=== PATIENT | female | born 2000 | race Hispanic/Latino ===

== ENCOUNTER 2018-10-31 22:45 | Inpatient (IN) | payer MEDICAID, OTHER ==
[~2018-10-31] VITALS: Ht 167.6 cm; Wt 85.3 kg
[~2018-10-31 22:45] MED LIST: FLUO10CA21 PO; LORA0.5T2 PO; METF-444 PO; METF-445 PO; NORE-8 PO
[2018-10-31 23:04] LABS: APPEARANCE,URINE Clear (CLEAR); BILIRUBIN,URINE Negative (NEGATIVE); COLOR,URINE Yellow (YELLOW); GLUCOSE, URINE (UA) >=1000 mg/dL (NEGATIVE); KETONES,URINE 40 mg/dL (NEGATIVE); LEUKOCYTE ESTERASE ,URINE Negative (NEGATIVE); NITRATE,URINE Negative (NEGATIVE); OCCULT BLOOD,URINE Small (NEGATIVE); PH,URINE 5.5 (5.0-8.0); PROTEIN,URINE >=1000 mg/dL (NEGATIVE)
[2018-10-31] MEDS ORDERED: ONDANSETRON HCL 4 MG/2 ML VIAL ONE (23:04)
[2018-10-31] MEDS ORDERED: SODIUM CHLORIDE 0.9% 1000ML 1,000 ML IV ONE (23:05)
[2018-10-31] MEDS ORDERED: KETOROLAC TROMETHAMINE 15MG/ML ONE (23:05)
[2018-10-31 23:09] LABS: HCG,QUAL RESULT NEGATIVE (NEGATIVE)
[2018-10-31 23:13] LABS: BACTERIA,URINE Few /HPF (None Seen)
[2018-10-31 23:19] LABS: HEMATOCRIT 39.2 % (36-48); MEAN CORPUSCULAR VOLUME 75.2 fL (80-100); PLATELET COUNT (AUTO) 255 K/uL (130-400); RED CELL DISTRIBUTION WIDTH 15.9 % (11.0-15.5)
[2018-10-31 23:20] LABS: MEAN CORPUSCULAR HEMOGLOBIN 25.2 pg (27.0-33.0)
[2018-10-31 23:21] LABS: MEAN CORPUSCULAR HGB CONC 33.4 g/dL (32.0-36.0)
[2018-10-31 23:26] LABS: POTASSIUM 3.7 mmol/L (3.5-5.1)
[2018-10-31 23:34] LABS: LDL DIRECT 56 mg/dL (0-99)
[2018-10-31] MEDS ORDERED: MORPHINE SULFATE 8 MG/ML VIAL ONE (23:37)
[2018-10-31 23:41] LABS: BAND NEUTROPHILS % (MANUAL) 3 % (0-2); BASOPHILS % (MANUAL) 1 % (0-2); LYMPHOCYTES % (MANUAL) 16 % (22-44); SEGMENTED NEUTROPHILS % 80 % (40-70)
[2018-10-31 23:42] LABS: MAN.DIFF COMMENT-IMPRESSION MANUAL DIFFERENTIAL; PLATELET MORPHOLOGY COMMENT ADEQUATE
[2018-11-01 00:01] LABS: CHOLESTEROL 766 mg/dL (<200); HDL CHOLESTEROL 628 mg/dL (35-85); TRIGLYCERIDES 7364 mg/dL (30-200)
[2018-11-01 00:45] LABS: ALBUMIN 3.6 g/dL (3.5-5.0); TOTAL PROTEIN, SERUM 7.9 g/dL (6.0-8.3)
[2018-11-01 00:46] LABS: BILIRUBIN,TOTAL 0.6 mg/dL (0.2-1.0); CREATININE 0.5 mg/dL (0.5-1.5)
[2018-11-01] MEDS ORDERED: MORPHINE SULFATE 4 MG/1ML SYG ONE (01:45)
--- NOTE | 2018-11-01 02:45 | NUR ---
INITIAL ASSESSMENT PATIENT ARRIVED IN STRETCHER FROM ED. PATIENT APPEARS IN PAIN WAS TRANSFERRED TO BED AND MADE COMFORTABLE. COMPLAINTS O PAIN AT THIS TIME WITH NAUSEA. IV FLUIDS ARE CURRENTLY RUNNING. PATIENT RECIEVED A DOSE OF MORPHINE PRIOR TO BEING BROUGHT UP TO UNIT. PATIENT IS ALERT AND ORIENTED X4. NO SIGNS OF DISTRESS. NO SIGNS OF SHORTNESS OF BREATH. PATIENTS BELONGINGS WERE SECURED. CALL LIGHT WITHIN REACH. BEDSIDE TABLE WITHIN REACH. NO QUESTIONS, CONCERNS, OR NEEDS AT THIS TIME.
[2018-11-01 03:53] VITALS: BP 126/79
[2018-11-01] MEDS: ONDANSETRON HCL 4 MG/2 ML VIAL IVP PRN ×3 (04:40→20:34)
[2018-11-01] MEDS: MORPHINE SULFATE 4 MG/1ML SYG IV PRN ×7 (04:40→23:56)
[2018-11-01] MEDS: CEFTRIAXONE SODIUM 1 GM IVP SCH (04:40)
[2018-11-01] MEDS: SODIUM CHLORIDE 0.9% 1000ML 1,000 ML IV SCH ×4 (04:48→22:52)
--- NOTE | 2018-11-01 05:15 | NUR ---
ASSESSMENT PAIN AND NAUSEA MEDICATION GIVEN, PATIENT APPEARS MORE COMFORTABLE. NO COMPLAINTS OF PAIN AT THIS TIME. NO SIGNS OF DISTRESS. NO SHORTNESS OF BREATH. CALL LIGHT IS WITHIN REACH. BEDSIDE TABLE WITHIN REACH. PATIENT REINFORCED TO CALL IF ANY NEEDS.
[2018-11-01] MEDS ORDERED: INSULIN HUMULIN R 100 UNIT/ML 3ML SQ SCH (06:00)
[2018-11-01 07:20] VITALS: BP 132/76
--- NOTE | 2018-11-01 07:25 | NUR ---
ASSESSMENT PT IS AAOX4 STATES SHE FEELS ABD PAIN DENIES NV, RESTING IN BED. BREATHING PATTERN IS EVEN AND UNLABORED. PATIENT IS NPO STATUS, AM MEDS GIVEN ALONG WITH PAIN MEDICATION ORDERED. CALL LIGHT WITHIN REACH.
[2018-11-01] MEDS ORDERED: INSU10VI3 SQ (07:30)
[2018-11-01] MEDS ORDERED: FENO40TA4 PO (07:30)
[2018-11-01] MEDS: FAMOTIDINE/PF 20 MG/2 ML VIAL IV SCH ×2 (07:31→20:34)
--- NOTE | 2018-11-01 08:30 | NUR ---
STATUS RESTING IN BED, STATES PAIN IS MORE UNDER CONTROL. CALL LIGHT WITHIN REACH.
[2018-11-01] MEDS ORDERED: PHARMACY COMMUNICATION MISC SCH (10:30)
[2018-11-01 11:15] VITALS: BP 137/77
--- NOTE | 2018-11-01 12:00 | NUR ---
DR KINSEY ROUNDED ORDERS RECEIVED
[2018-11-01] MEDS: INSULIN REGULAR, HUMAN 3ML 100 UNIT in SODIUM CHLORIDE 0.9% 99 ML IV PRN ×2 (12:09)
[2018-11-01] MEDS: METOPROLOL TARTRATE 1 MG/ML 5ML VIAL IV PRN (13:04)
--- NOTE | 2018-11-01 13:10 | NUR ---
METOPROLOL 5MG IV GIVEN FOR HR 150-160S
--- NOTE | 2018-11-01 13:13 | NUR ---
HR VIA TELE ST 110S. DENIES PAIN. DENIES PALPITATIONS
[2018-11-01 15:30] VITALS: BP 124/73
--- NOTE | 2018-11-01 16:41 | NUR ---
carlitos note met with patient and states resides in [facility] and is currently just visiting friend/family X 4 days. states independent and active with ambulation and does own adls. [place] plan is for [place] [facility] [facility] [place]. states a special program [facility] [place] in [place] and sees and gets meds. no other health insurance. has spoken to [employer] for possible assistance. provided with rx coupon cards. pt states she will followup in Spring after dc. Addendum: 11/01/18 at 1645 by ALBA VIEIRA CM Amended: Links added.
[2018-11-01 19:00] VITALS: BP 113/72
--- NOTE | 2018-11-01 19:25 | NUR ---
INITIAL ASSESSMENT PATIENT IS RESTING ASLEEP IN BED BUT IS AROUSABLE WHEN CALLED. PATIENT IS MOANING WITH MINOR PAIN. PATIENT IS CURRENTLY RUNNING AN INSULIN DRIP. IV IS PATENT AND INTACT. NO SIGNS OF DISTRESS. NO SHORTNESS OF BREATH. CALL LIGHT IS WITHIN REACH. BEDSIDE TABLE AND PERSONAL BELONGING ARE WITHIN REACH. PATIENT MADE AWARE WILL SEE WHAT TIME PAIN MED IS DUE AND BRING IT SOON IS IT IS AVAILABLE. NO QUESTIONS, CONCERNS, AND NEEDS AT THIS TIME.
[2018-11-01] MEDS: FENOFIBRATE NANOCRYSTALLIZED 145 MG TAB PO SCH (20:33)
[2018-11-01] MEDS ORDERED: SODIUM CHLORIDE 0.9% 500ML 500 ML in SODIUM CHLORIDE 0.9% 500ML 500 ML IV SCH (22:15)
--- NOTE | 2018-11-01 22:15 | NUR ---
TACHYCARDIA PATIENT HR SUSTAINING 140-160. PATIENT CONTINUES IN PAIN REGARDLESS OF TREATING WITH PRN MEDICATIONS. MIXING TECHNICIAN CATTLE DEHORNER MADE AWARE. ORDERS FOR EKG DONE SHOWED SINUS TACHYCARDIA. AN ORDER FOR NS 500 BOLUS ORDERED AND GIVEN WILL CONTINUE TO MONITOR PATIENT.
[2018-11-01 23:00] VITALS: BP 126/72
--- NOTE | 2018-11-02 | NUR ---
ASSESSMENT PATIENT IS RESTING IN BED. CONTINUES WITH PAIN. NO SIGNS OF DISTRESS. NO SHORTNESS OF BREATH. PATIENTS CALL LIGHT WITHIN REACH. BEDSIDE TABLE WITHIN REACH. NO QUESTIONS, CONCERNS, OR NEEDS AT THIS TIME.
[2018-11-02 03:00] VITALS: BP 127/73
[2018-11-02] MEDS: MORPHINE SULFATE 4 MG/1ML SYG IV PRN ×8 (03:05→20:56)
[2018-11-02] MEDS: SODIUM CHLORIDE 0.9% 1000ML 1,000 ML IV SCH ×4 (03:05→23:38)
[2018-11-02] MEDS: CEFTRIAXONE SODIUM 1 GM IVP SCH (03:05)
[2018-11-02 03:57] LABS: BASOPHILS % (AUTO) 0.2 % (0.0-5.0); EOSINOPHILS % (AUTO) 0.1 % (0.0-8.0); HEMATOCRIT 43.5 % (36-48); LYMPHOCYTES % (AUTO) 10.9 % (21.0-51.0); MEAN CORPUSCULAR HEMOGLOBIN 25.7 pg (27.0-33.0); MEAN CORPUSCULAR HGB CONC 33.6 g/dL (32.0-36.0); MEAN CORPUSCULAR VOLUME 76.6 fL (80-100); MONOCYTES % (AUTO) 5.4 % (3.0-13.0); NEUTROPHILS % (AUTO) 83.4 % (40.0-77.0); PLATELET COUNT (AUTO) 186 K/uL (130-400); RED BLOOD CELL COUNT(AUTO) 5.68 MIL/uL (4.00-5.50); RED CELL DISTRIBUTION WIDTH 16.1 % (11.0-15.5); WHITE BLOOD COUNT (AUTO) 17.8 K/uL (4.8-10.8)
[2018-11-02 04:10] LABS: HEMOGLOBIN A1C 9.4 % (4.0-6.0)
[2018-11-02 04:28] LABS: ALBUMIN 1.9 g/dL (3.5-5.0); BILIRUBIN,TOTAL 1.1 mg/dL (0.2-1.0); CREATININE 0.7 mg/dL (0.5-1.5); POTASSIUM 3.9 mmol/L (3.5-5.1); TOTAL PROTEIN, SERUM 6.2 g/dL (6.0-8.3)
[2018-11-02] MEDS ORDERED: MORPHINE SULFATE 2 MG/ML 1ML SYG IVP ONE (04:45)
--- NOTE | 2018-11-02 04:45 | NUR ---
ASSESSMENT PATIENT IS RESTING IN BED. CONTINUES WITH PAIN. HR SUSTAINING 140-160. SCHOOL HEALTH AIDE RIPSAW OPERATOR MADE AWARE. ADDITIONAL ORDER OF MORPHINE 2MG IV X1 ORDERED AND GIVEN. NO SIGNS OF DISTRESS. NO COMPLAINTS OF SHORTNESS OF BREATH. INSULIN DRIP CONTINUES INFUSING. CALL LIGHT WITHIN REACH. NO QUESTIONS, CONCERNS, OR NEEDS AT THIS TIME.
[2018-11-02 04:47] LABS: CRP QUANTITATIVE 409.9 mg/L (0.00-9.0)
[2018-11-02] MEDS: ONDANSETRON HCL 4 MG/2 ML VIAL IVP PRN ×2 (06:13→17:27)
[2018-11-02 07:20] VITALS: BP 130/70
[2018-11-02] MEDS: METOPROLOL TARTRATE 1 MG/ML 5ML VIAL IV PRN ×2 (07:56→20:06)
[2018-11-02] MEDS: FAMOTIDINE/PF 20 MG/2 ML VIAL IV SCH ×2 (07:56→20:06)
[2018-11-02] MEDS ORDERED: FENOFIBRATE NANOCRYSTALLIZED 145 MG TAB PO SCH (09:00)
[2018-11-02 12:27] VITALS: BP 120/63
[2018-11-02 15:30] VITALS: BP 120/56
[2018-11-02] MEDS: INSULIN REGULAR, HUMAN 3ML 100 UNIT in SODIUM CHLORIDE 0.9% 99 ML IV PRN ×2 (19:25)
[2018-11-02 19:30] VITALS: BP 131/65
--- NOTE | 2018-11-02 20:05 | NUR ---
MEDS SHIFT ASSESSMENT DONE, PLEASE REFER TO CHART. DUE MEDS ADMINISTERED, TOLERATED WELL. METOPROLOL IV ADMINISTERED FOR ELEVATED VG=710 BPM. KEPT NPO EXCEPT ICE CHIPS AND PO MEDS. KEPT COMFORTABLE IN BED. CALL LIGHT WITHIN REACH. WILL RE-ASSESS PT. Addendum: 11/03/18 at 0139 by FEI CLARKE RN RN Amended: Links added.
[2018-11-02] MEDS: FENOFIBRATE NANOCRYSTALLIZED 145 MG TAB PO SCH (20:06)
--- NOTE | 2018-11-02 20:56 | NUR ---
PAIN PT CALLS FOR PAIN MEDICATION. CLAIMS OF PAINS TO BACK AND ABDOMEN. MORPHINE IV ADMINISTERED. KEPT COMFORTABLE IN BED. CALL LIGHT WITHIN REACH. WILL RE-ASSESS PT.
[2018-11-02 23:21] VITALS: BP 129/72
--- NOTE | 2018-11-02 23:30 | NUR ---
ICE PT KEEPS ASKING FOR ICE CHIPS, EXPLAINED THAT SHE COULD NOT BE GIVEN A LOT SINCE SHE IS STILL HAVING ABDOMINAL PAINS. PT VERBALIZES UNDERSTANDING. PROVIDED ICE JUST ENOUGH TO HELP RELIEVE DRYNESS OF MOUTH.
[2018-11-03] MEDS: MORPHINE SULFATE 4 MG/1ML SYG IV PRN ×4 (00:16→11:32)
--- NOTE | 2018-11-03 00:16 | NUR ---
PAIN PT CALLS FOR PAIN MEDICATION, CLAIMS OF PAINS TO HER ABDOMEN. MEDICATED WITH MORPHINE IV. KEPT RESTED AND COMFORTABLE. CALL LIGHT WITHIN REACH. WILL MONITOR PT.
--- NOTE | 2018-11-03 00:30 | NUR ---
DRIP CONTINUED TO TITRATE INSULIN DRIP WITH THE USE OF ALGORITHM #1 BUT CHECKING BLOOD SUGAR Q2H ENDORSED BY AM NURSE. WILL VERIFY ORDER.
[2018-11-03] MEDS: METOPROLOL TARTRATE 1 MG/ML 5ML VIAL IV PRN (01:58)
--- NOTE | 2018-11-03 02:00 | NUR ---
HR PT'S HR IS SUSTAINING SR ON THE 140'S. METOPROLOL IV ADMINISTERED. WILL MONITOR CLOSELY.
--- NOTE | 2018-11-03 02:05 | NUR ---
PAGED PT'S HR STILL SUSTAINING ST 130-140 BPM. PT IS RESTING AND NO COMPLAINTS VERBALIZED AT THIS TIME. PAGEMarly GLASGOW NP SUPERVISOR PRODUCT INSPECTION FOR HOSPITALIST, VIA ANSWERING SERVICE, AWAITING CALL BACK.
[2018-11-03] MEDS: CEFTRIAXONE SODIUM 1 GM IVP SCH (03:20)
[2018-11-03 03:34] VITALS: BP 122/72
--- NOTE | 2018-11-03 03:41 | NUR ---
RE-PAGED PT CALLS AND ASKS FOR PAIN MEDICATION. ASK PT IF SHE WANTS TO GO URINATE BEFORE GIVING MORPHINE BUT REFUSED, OFFERED BEDPAN AND BSC BUT PT STILL REFUSED. CLAIMS SHE DOES NOT NEED TO URINATE. PT HAD NOT URINATED YET THIS SHIFT. DUE ANTIBIOTIC ADMINISTERED AND MORPHINE GIVEN FOR PAIN. KEPT COMFORTABLE IN BED. PCP CHECKED BLOOD XIIMY=950, KEPT ON I.5 UNITS OF INSULIN/HR PER PROTOCOL. NO CALL BACK FROM TACK DRILLER, RE-PAGED VIA ANSWERING SERVICE. AWAITING CALL BACK.
--- NOTE | 2018-11-03 04:00 | NUR ---
DONALD GLASGOW NP STERILE PROCESSING TECHNICIAN FOR HOSPITALIST, CALLED AND REFERRED PT'S INSULIN DRIP DOSING PER DR KINSEY. INFORMED RN TRAVELING ALSO OF CONSISTENT TACHYCARDIA AND FREQUENT CALLING OF PAIN MEDS. NO NEW ORDERS GIVEN.
[2018-11-03 04:38] LABS: CREATININE 0.6 mg/dL (0.5-1.5); POTASSIUM 3.4 mmol/L (3.5-5.1)
[2018-11-03] MEDS: SODIUM CHLORIDE 0.9% 1000ML 1,000 ML IV SCH (05:11)
[2018-11-03 08:00] VITALS: BP 128/63
[2018-11-03] MEDS: FAMOTIDINE/PF 20 MG/2 ML VIAL IV SCH ×2 (08:19→21:20)
[2018-11-03] MEDS ORDERED: GLUCAGON 1MG KIT 1 MG ML IM PRN (09:15)
[2018-11-03] MEDS ORDERED: DEXTROSE 50%-WATER 50 ML DISP.SYRIN IV PRN (09:15)
[2018-11-03 09:42] LABS: ALBUMIN 1.8 g/dL (3.5-5.0); BILIRUBIN,DIRECT 0.1 mg/dL (0.0-0.3); BILIRUBIN,TOTAL 0.7 mg/dL (0.2-1.0)
[2018-11-03] MEDS ORDERED: IOHEXOL-350 75 ML VIAL IV ONE (10:04)
[2018-11-03] MEDS ORDERED: ZOSYN 3.375GM+NS 50ML 50 ML IV SCH (10:30)
[2018-11-03] MEDS: LACTATED RINGERS 1000ML 1,000 ML IV SCH ×4 (11:13→22:50)
[2018-11-03] MEDS: INSULIN HUMULIN R 100 UNIT/ML 3ML SQ SCH ×3 (12:09→21:00)
[2018-11-03 12:24] VITALS: BP 114/63
[2018-11-03] MEDS ORDERED: HYDROXYZINE HCL 50 MG/ML VIAL IM PRN (13:00)
[2018-11-03] MEDS ORDERED: VANCOMYCIN 1GM+NS 250ML 250 ML IV SCH (13:00)
[2018-11-03] MEDS ORDERED: VANCOMYCIN PROTOCOL PER PHARMACY IV SCH (13:00)
[2018-11-03] MEDS ORDERED: COMPOUND IV REFRIGERATED 1 EACH IVSOLN MISC PRN (13:15)
[2018-11-03] MEDS: METRONIDAZOLE 500MG/100ML BAG 100 ML IV SCH ×2 (13:32→22:02)
[2018-11-03] MEDS: ACETAMINOPHEN 650 MG SUPPOSITORY RC PRN ×2 (13:32→22:12)
[2018-11-03] MEDS: ZOSYN 3.375GM+NS 50ML 50 ML IV SCH ×2 (13:39→21:21)
[2018-11-03] MEDS: VANCOMYCIN 1.5 GM in SODIUM CHLORIDE 0.9% 250 ML IV SCH ×2 (14:43→22:11)
[2018-11-03] MEDS: HYDROMORPHONE HCL 0.5 MG/0.5 ML ML IVP PRN ×3 (14:48→22:50)
--- NOTE | 2018-11-03 15:31 | NUR ---
Diet Education RD provided Pancreatitis/Low Fat Nutrition Education. ARTURO reviewed reference materials and handouts with Pt. ARTURO discussed frequently eaten foods with Pt. Pt Denies need for Diabetes Mellitus nutrition education. Pt with no questions at this time. ARTURO encouraged Pt to notify as questions or concerns arise. Addendum: 11/03/18 at [address] Amended: Links added.
[2018-11-03 15:43] VITALS: BP 114/63
[2018-11-03 20:03] VITALS: BP 142/69
[2018-11-03] MEDS: FENOFIBRATE NANOCRYSTALLIZED 145 MG TAB PO SCH (21:20)
[2018-11-03 23:47] VITALS: BP 145/75
[2018-11-04] MEDS: HYDROMORPHONE HCL 0.5 MG/0.5 ML ML IVP PRN ×5 (03:08→23:17)
[2018-11-04 04:02] VITALS: BP 141/78
[2018-11-04 04:15] LABS: ALBUMIN 1.4 g/dL (3.5-5.0); BILIRUBIN,TOTAL 0.6 mg/dL (0.2-1.0); CREATININE 0.5 mg/dL (0.5-1.5); POTASSIUM 3.2 mmol/L (3.5-5.1); TOTAL PROTEIN, SERUM 4.9 g/dL (6.0-8.3)
[2018-11-04] MEDS: ZOSYN 3.375GM+NS 50ML 50 ML IV SCH (04:49)
[2018-11-04] MEDS ORDERED: HYDROMORPHONE HCL 2 MG/ML VIAL IVP ONE (05:00)
[2018-11-04] MEDS: VANCOMYCIN 1.5 GM in SODIUM CHLORIDE 0.9% 250 ML IV SCH ×3 (05:07→22:44)
[2018-11-04] MEDS: METRONIDAZOLE 500MG/100ML BAG 100 ML IV SCH (05:08)
[2018-11-04] MEDS: LACTATED RINGERS 1000ML 1,000 ML IV SCH ×5 (06:14→19:38)
[2018-11-04] MEDS ORDERED: HYDROMORPHONE 1 MG/1 ML AMP ONE (06:19)
[2018-11-04] MEDS: INSULIN HUMULIN R 100 UNIT/ML 3ML SQ SCH ×4 (06:42→21:00)
[2018-11-04 07:43] LABS: BASOPHILS % (AUTO) 0.5 % (0.0-5.0); EOSINOPHILS % (AUTO) 1.6 % (0.0-8.0); HEMATOCRIT 28.8 % (36-48); LYMPHOCYTES % (AUTO) 10.6 % (21.0-51.0); MEAN CORPUSCULAR HEMOGLOBIN 25.5 pg (27.0-33.0); MEAN CORPUSCULAR HGB CONC 32.9 g/dL (32.0-36.0); MEAN CORPUSCULAR VOLUME 77.4 fL (80-100); MONOCYTES % (AUTO) 5.5 % (3.0-13.0); NEUTROPHILS % (AUTO) 81.8 % (40.0-77.0); PLATELET COUNT (AUTO) 131 K/uL (130-400); RED BLOOD CELL COUNT(AUTO) 3.71 MIL/uL (4.00-5.50); RED CELL DISTRIBUTION WIDTH 16.4 % (11.0-15.5); WHITE BLOOD COUNT (AUTO) 15.5 K/uL (4.8-10.8)
[2018-11-04] MEDS: FAMOTIDINE/PF 20 MG/2 ML VIAL IV SCH ×2 (08:05→19:38)
[2018-11-04 08:15] VITALS: BP 115/70
[2018-11-04 10:22] LABS: HEMATOCRIT 30.1 % (36-48); MEAN CORPUSCULAR HEMOGLOBIN 25.5 pg (27.0-33.0); MEAN CORPUSCULAR HGB CONC 32.9 g/dL (32.0-36.0); MEAN CORPUSCULAR VOLUME 77.4 fL (80-100); PLATELET COUNT (AUTO) 140 K/uL (130-400); RED CELL DISTRIBUTION WIDTH 16.1 % (11.0-15.5); WHITE BLOOD COUNT (AUTO) 17.1 K/uL (4.8-10.8)
[2018-11-04 10:28] LABS: CREATININE 0.6 mg/dL (0.5-1.5); POTASSIUM 3.2 mmol/L (3.5-5.1)
[2018-11-04] MEDS: POTASSIUM CHLORIDE 10MEQ/100ML 100 ML IV PRN ×2 (11:05→19:31)
[2018-11-04] MEDS ORDERED: ENOXAPARIN SODIUM 30 MG/0.3 ML SQ SCH (11:45)
[2018-11-04 12:19] VITALS: BP 124/67
[2018-11-04] MEDS: MEROPENEM 1 GM VIAL IVP SCH ×2 (12:22→19:38)
[2018-11-04 12:24] LABS: INR 0.96 (0.85-1.15); PROTHROMBIN TIME 10.1 SEC (9.6-11.6)
--- NOTE | 2018-11-04 15:00 | NUR ---
PROCEDURE PATIENT SCHEDULED FOR U/S GD THORACENTESIS. IMAGES TAKEN AND REVIEWED BY DR Kwasi DYSON. NOT ENOUGH FLUID SEEN FOR PROCEDURE AND EXAM CANCELLED. REPORT GIVEN TO JOANN HERNANDEZ AND PATIENT TRANSPORTED TO [facility] VIA BED.
[2018-11-04] MEDS: ACETAMINOPHEN 650 MG SUPPOSITORY RC PRN ×2 (15:49→23:16)
[2018-11-04 16:32] VITALS: BP 134/74
[2018-11-04 19:40] VITALS: BP 125/68
[2018-11-04] MEDS: FENOFIBRATE NANOCRYSTALLIZED 145 MG TAB PO SCH (19:42)
[2018-11-04 23:50] VITALS: BP 121/80
[2018-11-05] MEDS: LACTATED RINGERS 1000ML 1,000 ML IV SCH ×6 (00:10→17:07)
[2018-11-05] MEDS: HYDROMORPHONE HCL 0.5 MG/0.5 ML ML IVP PRN ×5 (03:25→21:50)
[2018-11-05] MEDS: MEROPENEM 1 GM VIAL IVP SCH ×3 (03:25→20:20)
[2018-11-05 03:44] VITALS: BP 132/67
[2018-11-05 04:53] LABS: BASOPHILS % (AUTO) 0.3 % (0.0-5.0); HEMATOCRIT 28.8 % (36-48); LYMPHOCYTES % (AUTO) 8.9 % (21.0-51.0); MEAN CORPUSCULAR HEMOGLOBIN 25.6 pg (27.0-33.0); MEAN CORPUSCULAR HGB CONC 32.7 g/dL (32.0-36.0); MEAN CORPUSCULAR VOLUME 78.1 fL (80-100); MONOCYTES % (AUTO) 8.4 % (3.0-13.0); NEUTROPHILS % (AUTO) 81.4 % (40.0-77.0); NUCLEATED RED BLOOD CELLS 0.1 % (0.0-0.19); PLATELET COUNT (AUTO) 136 K/uL (130-400); RED BLOOD CELL COUNT(AUTO) 3.69 MIL/uL (4.00-5.50); RED CELL DISTRIBUTION WIDTH 16.3 % (11.0-15.5); WHITE BLOOD COUNT (AUTO) 17.5 K/uL (4.8-10.8)
[2018-11-05 05:01] LABS: INR 0.99 (0.85-1.15); PROTHROMBIN TIME 10.4 SEC (9.6-11.6)
[2018-11-05] MEDS: VANCOMYCIN 1.5 GM in SODIUM CHLORIDE 0.9% 250 ML IV SCH ×3 (05:08→23:02)
[2018-11-05 05:09] LABS: ALBUMIN 1.7 g/dL (3.5-5.0); BILIRUBIN,TOTAL 0.6 mg/dL (0.2-1.0); CREATININE 0.7 mg/dL (0.5-1.5); POTASSIUM 3.3 mmol/L (3.5-5.1); TOTAL PROTEIN, SERUM 5.8 g/dL (6.0-8.3)
[2018-11-05] MEDS: INSULIN HUMULIN R 100 UNIT/ML 3ML SQ SCH ×3 (06:16→16:19)
[2018-11-05] MEDS: FAMOTIDINE/PF 20 MG/2 ML VIAL IV SCH ×2 (07:39→20:20)
[2018-11-05] MEDS: ENOXAPARIN SODIUM 30 MG/0.3 ML SQ SCH (07:39)
--- NOTE | 2018-11-05 07:40 | NUR ---
ASSESSMENT PT IS AAOX3 DENIES CP DENIES NV RESTING IN BED. STATES SHE FEELS SOME ABD PAIN. IV FLUIDS INFUSING ORDERED. HOB UP AT 30 DEGREES. CALL LIGHT WITHIN REACH.
[2018-11-05 08:00] VITALS: BP 137/82
--- NOTE | 2018-11-05 09:00 | NUR ---
[place] MILLAN ASSEMBLY MACHINE SET UP MECHANIC ROUNDED SAW PATIENT, ORDER RECEIVED
[2018-11-05 12:00] VITALS: BP 139/78
--- NOTE | 2018-11-05 13:00 | NUR ---
MD ROUNDS DR ARMSTRONG / DR MADERA ROUNDED, SAW PATIENT. ORDERS RECEIVED.
[2018-11-05 15:57] VITALS: BP 131/75
[2018-11-05 19:03] VITALS: BP 134/70
[2018-11-05] MEDS: FENOFIBRATE NANOCRYSTALLIZED 145 MG TAB PO SCH (20:21)
[2018-11-05] MEDS: ONDANSETRON HCL 4 MG/2 ML VIAL IVP PRN (20:42)
--- NOTE | 2018-11-05 22:00 | NUR ---
ORDERS HOSPITALIST PAGED FOR ORDERS
--- NOTE | 2018-11-05 22:30 | NUR ---
PER PEE WALLIS ADMINISTER 500 BOLUS OF NS FOR TACHYCARDIA 120-140S
[2018-11-05] MEDS: SODIUM CHLORIDE 0.9% 500ML 500 ML IV ONE (22:56)
--- NOTE | 2018-11-05 23:00 | NUR ---
DONALD WALLIS INFORMED PATIENT HR REMAINS TACHY 120-140. LABETALOL ORDERED
[2018-11-05] MEDS ORDERED: LABETALOL 20 MG/4 ML DISP.SYRIN IV PRN (23:30)
[2018-11-06 00:10] VITALS: BP 123/64
[2018-11-06] MEDS: HYDROMORPHONE HCL 0.5 MG/0.5 ML ML IVP PRN ×6 (02:45→20:00)
[2018-11-06 03:32] VITALS: BP 112/64
[2018-11-06] MEDS: INSULIN HUMULIN R 100 UNIT/ML 3ML SQ SCH ×5 (03:41→21:15)
[2018-11-06] MEDS: LACTATED RINGERS 1000ML 1,000 ML IV SCH ×4 (03:42→18:30)
[2018-11-06] MEDS: MEROPENEM 1 GM VIAL IVP SCH ×3 (03:42→19:58)
[2018-11-06] MEDS: SODIUM CHLORIDE 0.9% 500ML 500 ML IV ONE (03:43)
[2018-11-06 03:51] LABS: BASOPHILS % (AUTO) 0.1 % (0.0-5.0); EOSINOPHILS % (AUTO) 0.2 % (0.0-8.0); HEMATOCRIT 32.6 % (36-48); MEAN CORPUSCULAR HEMOGLOBIN 25.1 pg (27.0-33.0); MEAN CORPUSCULAR HGB CONC 32.2 g/dL (32.0-36.0); MEAN CORPUSCULAR VOLUME 77.8 fL (80-100); MONOCYTES % (AUTO) 7.3 % (3.0-13.0); NEUTROPHILS % (AUTO) 86.4 % (40.0-77.0); PLATELET COUNT (AUTO) 182 K/uL (130-400); RED BLOOD CELL COUNT(AUTO) 4.19 MIL/uL (4.00-5.50); WHITE BLOOD COUNT (AUTO) 24.2 K/uL (4.8-10.8)
[2018-11-06 04:01] LABS: INR 1.01 (0.85-1.15); PARTIAL THROMBOPLASTIN TIME 26.7 SEC (26.3-35.5); PROTHROMBIN TIME 10.6 SEC (9.6-11.6)
[2018-11-06 04:04] LABS: ALBUMIN 1.7 g/dL (3.5-5.0); BILIRUBIN,TOTAL 0.5 mg/dL (0.2-1.0); CREATININE 0.7 mg/dL (0.5-1.5); PHOSPHORUS 3.2 mg/dL (2.5-4.9); POTASSIUM 3.5 mmol/L (3.5-5.1); TOTAL PROTEIN, SERUM 6.2 g/dL (6.0-8.3)
--- NOTE | 2018-11-06 04:59 | NUR ---
HEART RATE DECREASED TO 100-115. PATIENT C/O OF ABDOMINAL PAIN AND NAUSEA SEVERAL TIMES. PAIN MEDS AND ANTIEMESIS MEDICATIONS ADMINISTERED APPROPRIATELY. PATIENT HAD A LOOSE BM. GOETZ IN PLACE DRAINING CLEAR YELLOW URINE.
[2018-11-06] MEDS: VANCOMYCIN 1.5 GM in SODIUM CHLORIDE 0.9% 250 ML IV SCH ×3 (06:11→21:09)
[2018-11-06] MEDS: ONDANSETRON HCL 4 MG/2 ML VIAL IVP PRN ×2 (06:11→17:55)
--- NOTE | 2018-11-06 07:40 | NUR ---
ASSESSMENT PT IS AAOX3 DENIES CP DENIES SOB, DOES COMPLAIN OF ABD PAIN. PRN DILAUDID GIVEN FOR PAIN. AM MEDS GIVEN, PATIENT REFUSED LOVENOX. CALL LIGHT WITHIN REACH.
[2018-11-06 07:55] VITALS: BP 138/86
[2018-11-06] MEDS: FAMOTIDINE/PF 20 MG/2 ML VIAL IV SCH ×2 (07:58→19:58)
[2018-11-06] MEDS: ENOXAPARIN SODIUM 30 MG/0.3 ML SQ SCH ×2 (07:58→08:00)
--- NOTE | 2018-11-06 10:44 | NUR ---
DR ANDREWS ROUNDED FAILED ATTEMPT NGT TUBE, PLAN IR TO PLACE NGT.
--- NOTE | 2018-11-06 11:10 | NUR ---
FATHER CALLED WANTS TO SPEAK TO DOCTOR. I ASKED PATIENT IF THIS WAS FINE. SHE SAID YES IT IS FINE. DR ANDREWS SPOKE WITH FATHER VIA PHONE.
[2018-11-06 11:25] VITALS: BP 137/81
--- NOTE | 2018-11-06 11:45 | NUR ---
DREA ARGUELLES PLACEMENT PATIENT SITTING UP AT BEDSIDE. PROCEDURE EXPLAINED AND PATIENT VERBALIZED UNDERSTANDING. WOLF ARGUELLES MEASURED ON LEFT SIDE AND PLACED TO LT NARE. PLACEMENT VERIFIED WITH 30CC AIR INJECTED THROUGH CATHETER. AIR AUSCULTATED IN STOMACH. PATIENT TOLERATD PROCEDURE WELL. DO ARUGELLES SECURED WITH OPSITE TO LT NARE. PATIENT TO GO TO RADIOLOGY FOR CATHETER ADVANCEMENT IN SMALL BOWEL
[2018-11-06 16:08] VITALS: BP 125/68
--- NOTE | 2018-11-06 16:56 | NUR ---
RD FOLLOW UP Tube Feeding Recommendations Per Requested: Continuous Vital High Protein Initiated at 25mls/hr, increase by 5 every 5 hours. Goal rate:60mLs/hr (1440kcal/126gm Pro/1204mLs H2O/33gm Fat). Low fat formula due to Pancreatitis. Recommended Flushes: 135mls Q12Hrs. Tube feeding recommendations placed in Pt chart. Pt pending NGT placement as per EMR. Pt LBM 11/06/18. Pt monitored labs: Na 133, CO2 11, BUN 4, Glu 179, Alb 1.7. RD to continue to monitor. Please notify RD as additional nutrition concerns arise. Thank you. Addendum: 11/06/18 at [address] Amended: Links added.
--- NOTE | 2018-11-06 17:35 | NUR ---
DR ANDREWS ROUNDED ORDERED TO HOLD FEEDING VIA BLANE FOR NOW. HE SPOKE WITH DR EDOUARD SANCHES VIA PHONE. DR SANCHES TO REVIEW CHART AND CALL BACK WITH ORDERS.
[2018-11-06 19:12] VITALS: BP 132/80
[2018-11-06] MEDS: FENOFIBRATE NANOCRYSTALLIZED 145 MG TAB PO SCH (19:58)
--- NOTE | 2018-11-06 23:22 | NUR ---
CT abdomen Per [facility] ER is busy and they do not have staff to perform CT ordered at night. Will do CT in morning.
[2018-11-07] VITALS (8 sets, daily range): BP systolic 82–135; BP diastolic 56–77
[2018-11-07] MEDS: HYDROMORPHONE HCL 0.5 MG/0.5 ML ML IVP PRN ×4 (00:26→17:18)
[2018-11-07] MEDS: MEROPENEM 1 GM VIAL IVP SCH ×3 (03:35→20:16)
[2018-11-07] MEDS: ONDANSETRON HCL 4 MG/2 ML VIAL IVP PRN (03:35)
[2018-11-07 04:34] LABS: INR 0.98 (0.85-1.15); PARTIAL THROMBOPLASTIN TIME 24.5 SEC (26.3-35.5); PROTHROMBIN TIME 10.3 SEC (9.6-11.6)
--- NOTE | 2018-11-07 04:34 | NUR ---
Patient called for pain medication every 4hours for abdominal pain 08/27. C/O nausea one time. Medicated with antiemesis medication. Patient has no motivation to move from bed. Weinberg catheter in place draining clear yellow urine. Output is good.
[2018-11-07] MEDS: VANCOMYCIN 1.5 GM in SODIUM CHLORIDE 0.9% 250 ML IV SCH ×3 (05:55→22:32)
[2018-11-07] MEDS: INSULIN HUMULIN R 100 UNIT/ML 3ML SQ SCH ×4 (06:26→21:51)
[2018-11-07] MEDS: FAMOTIDINE/PF 20 MG/2 ML VIAL IV SCH ×2 (09:20→20:16)
[2018-11-07 10:29] LABS: HEMATOCRIT 29.1 % (36-48); MEAN CORPUSCULAR HEMOGLOBIN 25.3 pg (27.0-33.0); MEAN CORPUSCULAR HGB CONC 32.4 g/dL (32.0-36.0); MEAN CORPUSCULAR VOLUME 78.2 fL (80-100); NUCLEATED RED BLOOD CELLS 0.1 % (0.0-0.19); PLATELET COUNT (AUTO) 167 K/uL (130-400); RED BLOOD CELL COUNT(AUTO) 3.72 MIL/uL (4.00-5.50); RED CELL DISTRIBUTION WIDTH 16.5 % (11.0-15.5); WHITE BLOOD COUNT (AUTO) 14.5 K/uL (4.8-10.8)
[2018-11-07 10:41] LABS: CREATININE 0.7 mg/dL (0.5-1.5)
[2018-11-07 10:53] LABS: POTASSIUM 2.9 mmol/L (3.5-5.1)
[2018-11-07] MEDS: LACTATED RINGERS 1000ML 1,000 ML IV SCH ×2 (13:12→22:32)
[2018-11-07] MEDS: ENOXAPARIN SODIUM 30 MG/0.3 ML SQ SCH (13:13)
[2018-11-07] MEDS ORDERED: IOHEXOL-350 75 ML VIAL IV ONE (14:04)
--- NOTE | 2018-11-07 16:01 | NUR ---
Nutrition f/u: Nutrition consult for TPN recommendations. Pt with PICC line placed. TF to stop. Elevated triglycerides at 554, cholesterol at 212, Lipase at 863. Recommendations: Clinimix 5 standard at 75ml/hr + Intralipids -- starting Saturday. Monitor Lipid Panel on a weekly basis. Estimated to provide 1778kcal, 90gPro, GIR 2.2mg/kg/min. RD to continue monitoring nutritional status for continued intervention. Addendum: 11/07/18 at [address] RD Amended: Links added.
[2018-11-07] MEDS ORDERED: FAT EMULSIONS 20% 250ML 250 ML IV SCH (16:08)
[2018-11-07] MEDS ORDERED: M.V.I. IV [ADULT] 10 ML in CLINIMIX E 5%-15% 2,000 ML IV SCH (16:15)
[2018-11-07] MEDS ORDERED: LIDOCAINE HCL-MPF 1% 2ML VIAL IV PRN (17:45)
[2018-11-07] MEDS: POTASSIUM CHLORIDE 20MEQ/100ML 100 ML IV PRN ×2 (18:53→20:17)
[2018-11-07] MEDS: FENOFIBRATE NANOCRYSTALLIZED 145 MG TAB PO SCH ×2 (20:00→20:37)
--- NOTE | 2018-11-07 21:00 | NUR ---
Pt. was complaining of left back pain,DONALD Mina was making rounds for another pt and was notified of pt complainedof pain but no pain medication received new order.
[2018-11-07] MEDS ORDERED: HYDROMORPHONE HCL 0.5 MG/0.5 ML ML IVP SCH (21:15)
--- NOTE | 2018-11-08 | NUR ---
Pt. resting well , respirations even and non labored.Call light placed within reach.
--- NOTE | 2018-11-08 03:29 | NUR ---
Payient c/o abdominal pain and sudden onset of right eye swelling.DONALD Mina was notified and received order.Ice pack applied.Will continue to monitor pt.
[2018-11-08] MEDS ORDERED: HYDROMORPHONE HCL 0.5 MG/0.5 ML ML IVP ONE (03:30)
[2018-11-08 04:07] LABS: BASOPHILS % (AUTO) 0.3 % (0.0-5.0); EOSINOPHILS % (AUTO) 3.3 % (0.0-8.0); HEMATOCRIT 27.6 % (36-48); LYMPHOCYTES % (AUTO) 15.9 % (21.0-51.0); MEAN CORPUSCULAR HEMOGLOBIN 25.5 pg (27.0-33.0); MEAN CORPUSCULAR HGB CONC 33.5 g/dL (32.0-36.0); MEAN CORPUSCULAR VOLUME 76.2 fL (80-100); MONOCYTES % (AUTO) 6.8 % (3.0-13.0); NEUTROPHILS % (AUTO) 73.7 % (40.0-77.0); PLATELET COUNT (AUTO) 140 K/uL (130-400); RED BLOOD CELL COUNT(AUTO) 3.62 MIL/uL (4.00-5.50); RED CELL DISTRIBUTION WIDTH 16.1 % (11.0-15.5); WHITE BLOOD COUNT (AUTO) 11.3 K/uL (4.8-10.8)
[2018-11-08] MEDS: MEROPENEM 1 GM VIAL IVP SCH ×3 (04:10→20:00)
[2018-11-08] MEDS: LACTATED RINGERS 1000ML 1,000 ML IV SCH ×4 (04:18→17:03)
[2018-11-08 04:29] LABS: ALBUMIN 1.8 g/dL (3.5-5.0); BILIRUBIN,TOTAL 0.3 mg/dL (0.2-1.0); CREATININE 0.6 mg/dL (0.5-1.5); MAGNESIUM 1.4 mg/dL (1.80-2.40); PHOSPHORUS 2.4 mg/dL (2.5-4.9); TOTAL PROTEIN, SERUM 5.9 g/dL (6.0-8.3)
[2018-11-08 04:31] LABS: POTASSIUM 2.7 mmol/L (3.5-5.1)
[2018-11-08 04:43] VITALS: BP 136/81
[2018-11-08] MEDS ORDERED: MAGNESIUM 2GM PREMIX 50ML 50 ML IV ONE (04:56)
[2018-11-08] MEDS: POTASSIUM CHLORIDE 20MEQ/100ML 100 ML IV PRN ×3 (05:04→14:30)
[2018-11-08] MEDS: VANCOMYCIN 1.5 GM in SODIUM CHLORIDE 0.9% 250 ML IV SCH ×3 (05:13→22:44)
[2018-11-08] MEDS: INSULIN HUMULIN R 100 UNIT/ML 3ML SQ SCH ×4 (06:12→21:00)
[2018-11-08 07:20] VITALS: BP 118/74
[2018-11-08] MEDS: FAMOTIDINE/PF 20 MG/2 ML VIAL IV SCH ×2 (08:53→20:00)
[2018-11-08] MEDS: ENOXAPARIN SODIUM 30 MG/0.3 ML SQ SCH (08:53)
[2018-11-08] MEDS: MAGNESIUM 2GM PREMIX 50ML 50 ML IV PRN (08:58)
[2018-11-08 11:20] VITALS: BP 133/74
--- NOTE | 2018-11-08 12:19 | NUR ---
Nutrition follow-up: Pt. on Clear Liquid diet, TPN-Clinimix 5/15@75ml/hr with 250ml 20% Intralipids. Pt. stated was able to tolerate 2 juices and Dutch ice with no N/V reported. Labs reviewed(Alb 1.8, BG 262, TG 417, Lipase 620). LBM: 11/07/18. Recommendations: 1) Continue current TPN and Intralipids. 2) When medically feasible, rec. advance diet as tolerated to 75gm CCD Low Fat GI Soft/[place]. 3) Continue to monitor pt's nutritional status. 4) Consult RD as nutrition concerns arise. Addendum: 11/08/18 at [address] Amended: Links added.
[2018-11-08 15:00] VITALS: BP 115/70
[2018-11-08] MEDS: FENOFIBRATE NANOCRYSTALLIZED 145 MG TAB PO SCH (20:00)
[2018-11-08 20:14] VITALS: BP 133/81
[2018-11-08 23:58] VITALS: BP 120/80
[2018-11-09] MEDS: LACTATED RINGERS 1000ML 1,000 ML IV SCH ×2 (02:03→05:07)
[2018-11-09 04:29] VITALS: BP 123/79
[2018-11-09 04:56] LABS: BASOPHILS % (AUTO) 0.1 % (0.0-5.0); EOSINOPHILS % (AUTO) 1.8 % (0.0-8.0); HEMATOCRIT 26.2 % (36-48); LYMPHOCYTES % (AUTO) 17.4 % (21.0-51.0); MEAN CORPUSCULAR HEMOGLOBIN 25.3 pg (27.0-33.0); MEAN CORPUSCULAR HGB CONC 33.3 g/dL (32.0-36.0); MEAN CORPUSCULAR VOLUME 75.9 fL (80-100); MONOCYTES % (AUTO) 5.6 % (3.0-13.0); NEUTROPHILS % (AUTO) 75.1 % (40.0-77.0); PLATELET COUNT (AUTO) 151 K/uL (130-400); RED BLOOD CELL COUNT(AUTO) 3.45 MIL/uL (4.00-5.50); RED CELL DISTRIBUTION WIDTH 15.7 % (11.0-15.5); WHITE BLOOD COUNT (AUTO) 12.4 K/uL (4.8-10.8)
[2018-11-09] MEDS: MEROPENEM 1 GM VIAL IVP SCH ×3 (05:02→19:44)
[2018-11-09] MEDS: VANCOMYCIN 1.5 GM in SODIUM CHLORIDE 0.9% 250 ML IV SCH ×3 (05:06→22:45)
[2018-11-09 05:12] LABS: ALBUMIN 1.8 g/dL (3.5-5.0); BILIRUBIN,TOTAL 0.3 mg/dL (0.2-1.0); CREATININE 0.3 mg/dL (0.5-1.5)
[2018-11-09 05:17] LABS: POTASSIUM 2.9 mmol/L (3.5-5.1)
[2018-11-09] MEDS: POTASSIUM CHLORIDE 20MEQ/100ML 100 ML IV PRN (05:22)
[2018-11-09] MEDS: INSULIN HUMULIN R 100 UNIT/ML 3ML SQ SCH ×4 (06:05→21:37)
[2018-11-09 07:25] VITALS: BP 124/73
[2018-11-09] MEDS: ENOXAPARIN SODIUM 30 MG/0.3 ML SQ SCH (08:29)
[2018-11-09] MEDS: FAMOTIDINE/PF 20 MG/2 ML VIAL IV SCH ×2 (08:29→20:23)
--- NOTE | 2018-11-09 08:45 | NUR ---
AM ASSESSMENT PT LAYING IN BED, RESTING. A/O X 3. NO SOB. NO DISTRESS NOTED. DENIES PALPITATIONS. TELE: STACH 110s. DENIES ABDOMINAL PAIN. DENIES N/V. (+) LOOSE STOOLS. DIET TO BE ADVANCED THIS AM. TOLERATED CLEAR LIQUIDS. 16 FR GOETZ CATH PATENT & DRAINING. LR'S INFUSING @ 150 ML/HR, ABBY PICC LINE. UP W/ASSISTANCE. INSTRUCTED TO CALL FOR ASSISTANCE. CALL KAYY W/IN REACH.
[2018-11-09] MEDS: POTASSIUM CHLORIDE 10% ELIXIR 20 MEQ/15 ML UDCUP PO PRN ×4 (09:06→16:35)
--- NOTE | 2018-11-09 10:48 | NUR ---
STATUS 16 FR GOETZ CATHETER DC'D @ THIS TIME. CATHETER TIP INTACT. NO RESISTANCE @ WITHDRAWAL. PT INFORMED TO NOTIFY STAFF OF 1st VOID AFTER CATHETER REMOVAL.
[2018-11-09 11:15] VITALS: BP 119/76
--- NOTE | 2018-11-09 12:50 | NUR ---
STATUS PT SITTING IN CHAIR, CRYING. PT WANTING TO GO HOME TODAY. STATES NOT WANTING TO WAIT UNTIL TOMORROW TO BE DISCHARGED HOME. INFORMED PT MD TO BE NOTIFIED.
--- NOTE | 2018-11-09 13:00 | NUR ---
MD VISIT DR LAI IN TO SEE PT. PT REPEATED TO MD THAT SHE WOULD LIKE TO GO HOME TODAY. INFORMED PT LA IS TO DC TOMORROW, PT NOT READY TO BE DISCHARGED HOME TODAY. PT INSISTS ON WANTING TO GO HOME TODAY. LEAVING AMA EXPLAINED BY . PT INFORMED SHE WOULD BE LEAVING AMA W/OUT PRESCRIPTIONS.
--- NOTE | 2018-11-09 13:30 | NUR ---
STATUS PT SITTING IN CHAIR, CONTRACT TECHNICAL WRITER PHONE. @ THIS TIME PT WILL CONTINUE TO STAY IN HOSPITAL AND WON'T BE LEAVING AMA.
[2018-11-09 15:00] VITALS: BP 104/73
--- NOTE | 2018-11-09 17:23 | NUR ---
MD NOTIFICATION DR LAI NOTIFIED RUE VENOUS DOPPLER (+) FOR DVT, BRACHIAL & ANTECUBITAL VEIN. ORDERS RECEIVED & ENTERED.
--- NOTE | 2018-11-09 18:00 | NUR ---
MD VISIT DR LAI IN TO SEE PT. RUE VENOUS DOPPLER RESULTS REVIEWED W/PT. PT TO BE STARTED ON ELIQUIS, PT INFORMED BY MD. QUESTIONS ENCOURAGED & CLARIFIED BY .
[2018-11-09] MEDS ORDERED: APIXABAN 5 MG TABLET PO ONE (18:08)
[2018-11-09] MEDS ORDERED: APIXABAN 5 MG TABLET PO SCH (18:15)
[2018-11-09] MEDS: FENOFIBRATE NANOCRYSTALLIZED 145 MG TAB PO SCH (19:45)
[2018-11-09 20:08] VITALS: BP 109/69
[2018-11-09] MEDS: APIXABAN 5 MG TABLET PO SCH (20:23)
--- NOTE | 2018-11-09 22:20 | NUR ---
TRANSFER OF CARE Report and transfer of care given by Nicky Felton RN. Patient transferred via wheelchair from room 224. No shortness of breath or distress. No pain or chest pain reported at this time. Vital signs are stable and afebrile; patient has a heart rate of 112 but has been sinus tachycardia before transfer. Patient has no questions or concerns at this time. Bed at its lowest, locked position. Call light within reach and encourage patient to call for assistance.
--- NOTE | 2018-11-09 22:21 | NUR ---
pT. TRANSFEWRED TO ROOM 301 VIA WHEELCHAIR IN STABLE CONDITION AFTEWR REPORT GIVEN TO NURSE MASTERS USING SBAR ALL QUESTIONS ANSWERED.ADVISED ON RIGHT ARM PRECAUTIONS RELATED TO DVT PENDING OFFICIAL RESULT OF DOPPLER.
[2018-11-09 22:30] VITALS: BP 129/84
[2018-11-10] MEDS: MEROPENEM 1 GM VIAL IVP SCH ×2 (03:29→12:44)
[2018-11-10 04:00] VITALS: BP 113/70
[2018-11-10] MEDS: VANCOMYCIN 1.5 GM in SODIUM CHLORIDE 0.9% 250 ML IV SCH ×2 (06:10→14:36)
[2018-11-10 06:24] LABS: BASOPHILS % (AUTO) 0.4 % (0.0-5.0); EOSINOPHILS % (AUTO) 2.3 % (0.0-8.0); HEMATOCRIT 25.7 % (36-48); LYMPHOCYTES % (AUTO) 19.2 % (21.0-51.0); MEAN CORPUSCULAR HEMOGLOBIN 25.8 pg (27.0-33.0); MEAN CORPUSCULAR HGB CONC 33.4 g/dL (32.0-36.0); MEAN CORPUSCULAR VOLUME 77.1 fL (80-100); NEUTROPHILS % (AUTO) 72.1 % (40.0-77.0); NUCLEATED RED BLOOD CELLS 0.1 % (0.0-0.19); PLATELET COUNT (AUTO) 143 K/uL (130-400); RED BLOOD CELL COUNT(AUTO) 3.34 MIL/uL (4.00-5.50); RED CELL DISTRIBUTION WIDTH 15.6 % (11.0-15.5); WHITE BLOOD COUNT (AUTO) 10.5 K/uL (4.8-10.8)
[2018-11-10 06:28] LABS: BILIRUBIN,TOTAL 0.3 mg/dL (0.2-1.0); CREATININE 0.5 mg/dL (0.5-1.5); MAGNESIUM 1.6 mg/dL (1.80-2.40); POTASSIUM 3.6 mmol/L (3.5-5.1); TOTAL PROTEIN, SERUM 6.4 g/dL (6.0-8.3)
[2018-11-10] MEDS: INSULIN HUMULIN R 100 UNIT/ML 3ML SQ SCH ×2 (06:40→11:30)
[2018-11-10 07:00] VITALS: BP 121/79
[2018-11-10] MEDS: APIXABAN 5 MG TABLET PO SCH (08:26)
[2018-11-10] MEDS: FAMOTIDINE/PF 20 MG/2 ML VIAL IV SCH (08:27)
[2018-11-10] MEDS ORDERED: FAT EMULSIONS 20% 250ML 250 ML IV SCH (10:00)
[2018-11-10 11:00] VITALS: BP 122/75
--- NOTE | 2018-11-10 11:30 | NUR ---
TALK ABOUT MARY CARMEN OWENS TALK W PT RE TRANSITION/ TRANSPORT TO [place], STATES SHE IS GOING TO TAKE A [employer] BUS- 'NO PROBLEM I HAVE DONE IT BEFORE FALL THE WAY TO [place] AND BACK AND HER BROTHER WILL MEET HER IN [place] AND TAKE HER TO [place]. APPEARS HAPPY AND CONFIDENT, STATES WILL GET HER MEDS FILLED HERE BEFORE SHE GOES , HAS APPOINTMENT ALREADY SET UP FOR NEXT SATURDAY WITH HER PCP Addendum: 11/11/18 at 0755 by CHRISTINA PEREZ RN CM Amended: Links added.
--- NOTE | 2018-11-10 13:56 | NUR ---
RD FOLLOW UP NOTE Pt tolerating 75gm CC, GI Soft/Muse Diet with no report of GI distress and Fair PO intake (50-75%) as per Pt. RD notified for Dietary teaching; Diet education previously provided, RD followed up, Pt with no questions at this time. Pt LBM 11/08/18. Pt monitored labs: CO2 33, BUN 3, Glu 141, Mg 1.60, Alb 2.0. RD to continue to monitor. Please notify RD as nutrition concerns arise. Thank you. Addendum: 11/10/18 at [address] Amended: Links added.
[2018-11-10] MEDS: MAGNESIUM 2GM PREMIX 50ML 50 ML IV PRN (14:35)
[2018-11-10] MEDS: POTASSIUM CHLORIDE 20MEQ/100ML 100 ML IV PRN (14:36)
--- NOTE | 2018-11-10 16:01 | NUR ---
PICC LINE REMOVED ,TIP INTACT 40CM FREDDY.PRESSURE APPLIED FOR 5 MIN . NO SIGNS OF BLEEDING OBSERVED .PATIENT TOLERATED WELL .GAUZE APPLIED
== END 2018-11-10 16:30 | disposition home or self-care (01) | DRG 871 ==
LOC: EDH 22:45 → EDHIP 22:46 → 2DH 11-01 02:49 → 3AH 11-09 22:37
PROVIDERS: ADMIT Internal Medicine; ATTEND Internal Medicine
PROC: 0DH67UZ Insertion of Feeding Device into Stomach, Via Natural or Artificial Opening (ICD-10-PCS; principal; 2018-11-06)
PROC: BD12ZZZ Fluoroscopy of Stomach (ICD-10-PCS; 2018-11-06)
PROC: 02HV33Z Insertion of Infusion Device into Superior Vena Cava, Percutaneous Approach (ICD-10-PCS; 2018-11-07)
PROC: B548ZZA Ultrasonography of Superior Vena Cava, Guidance (ICD-10-PCS; 2018-11-07)
PROC: 3E0436Z Introduction of Nutritional Substance into Central Vein, Percutaneous Approach (ICD-10-PCS; 2018-11-07)
DX: A41.9 Sepsis, unspecified organism (principal); K85.90 Acute pancreatitis without necrosis or infection, unspecified; E87.1 Hypo-osmolality and hyponatremia; R18.8 Other ascites; E78.00 Pure hypercholesterolemia, unspecified; E11.9 Type 2 diabetes mellitus without complications; E66.9 Obesity, unspecified; E78.1 Pure hyperglyceridemia; Z82.0 Family history of epilepsy and other diseases of the nervous system; Z82.3 Family history of stroke; Z82.49 Family history of ischemic heart disease and other diseases of the circulatory system; Z82.5 Family history of asthma and other chronic lower respiratory diseases; Z83.3 Family history of diabetes mellitus; Z91.19 Patient's noncompliance with other medical treatment and regimen
CPT/HCPCS: 36415; 43752; 71045; 74160; 74177; 76604; 76700; 76856; 80048; 80053; 80061; 80076; 80202; 81001; 81025; 82010; 82150; 82247; 82248; 82550; 82948; 83036; 83615; 83690; 83735; 84100; 84443; 84478; 85025; 85027; 85610; 85730; 86140; 87040; 87088; 93005; 93971; A4344; C1751; C1894; G0378; J0696; J1170; J1650; J1815; J1885; J2185; J2270; J2405; J2543; J3370; J3475; J3480; J3490; J7030; J7040; J7120; Q9967